=== PATIENT | male | born 1965 | race African-American/Black ===

== ENCOUNTER 2017-05-18 09:24 | Emergency (ER) | payer MEDICAID ==
[~2017-05-18] VITALS: Ht 177.8 cm; Wt 65.8 kg
[2017-05-18 09:45] VITALS: BP 126/89
[2017-05-18] MEDS ORDERED: KETOROLAC TROMETH 60MG/2ML VIAL IM ONE (10:45)
[2017-05-18] MEDS ORDERED: KETOROLAC TROMETH 30 MG/ML 1ML VIAL IM ONE (10:45)
== END 2017-05-18 11:55 | disposition home or self-care (01) ==
LOC: ER 09:24
DX: L03.211 Cellulitis of face (principal)
CPT/HCPCS: 70486; 96372; 99283; J1885